=== PATIENT | female | born 1980 | race Two or more races ===

== ENCOUNTER 2025-09-26 08:58 | Emergency (ER) | payer BC, SELFPAY ==
[2025-09-26 09:09] VITALS: BP 154/96; PULSE 66; RESP 16; TEMP 37.2; O2SAT 98; BMI 45.0
--- NOTE | 2025-09-26 09:19 | XR_ITS ---
EXAMINATION: PA lateral chest 2 views TECHNIQUE: Upright PA lateral chest 2 views Date and time: September 26, 2025, 10:24 a.m. INDICATIONS: Difficulty swallowing 10 days. FINDINGS: Moderate enlargement cardiac contour No pneumonia or pulmonary edema. No opaque foreign body IMPRESSION: No opaque foreign body
--- NOTE | 2025-09-26 09:19 | XR_ITS ---
EXAMINATION: AP lateral soft tissue neck 2 views TECHNIQUE: AP lateral soft tissue neck 2 views INDICATIONS: Foreign body sensation 10 days FINDINGS: Minimal distention hypopharynx Epiglottis is not thickened No opaque foreign body Satisfactory alignment cervical vertebral bodies IMPRESSION: No opaque foreign body
--- NOTE | 2025-09-26 09:19 | XR_ITS ---
Examination: CT soft tissue neck, with intravenous contrast. 2-D coronal reconstructions. 2-D sagittal reconstructions. Date and time of exam : September 26, 2025, 1104 hours INDICATIONS: Sore throat difficulty swallowing this week. CTDI: vol (mGy): 18 DLP: (mGycm): 516 Technique: 1.25 mm axial sections of the neck of the obtained. Coronal and sagittal reconstructions have been obtained. Intravenous contrast administered 50 cc Isovue-370. Low dose protocols were performed. One or more of the following dose reduction techniques were used; automated exposure control, adjustment of the mA and/or KV according to patient size, use of iterative reconstruction technique. Findings: Maxillary antra are clear No tonsillar soft tissue hypertrophy or abscess Symmetrical submandibular and parotid glands The larynx appears normal No thyroid nodules Normal epiglottis No prevertebral soft tissue prominence Satisfactory alignment cervical vertebral bodies Fluid-filled esophagus IMPRESSION: No oropharyngeal or nasopharyngeal abscess Normal larynx Normal epiglottis Fluid-filled esophagus
--- NOTE | 2025-09-26 09:19 | XR_ITS ---
Examination: CT chest with intravenous contrast CT abdomen with intravenous contrast CT pelvis with intravenous contrast 2-D coronal and sagittal reconstructions Time of exam: September 26, 2025, 11:00 a.m. INDICATIONS: Sore throat difficulty swallowing heartburn abdominal pain 10 days CTDI: vol (mGy) : 21 DLP: (mGycm): 1504 Technique: Multiple axial images of the chest, abdomen and pelvis with intravenous contrast, 3.0 mm slice thickness. Images obtained post intravenous injection Isovue 370 60 cc. 2-D sagittal and coronal reconstructions. Low dose protocols were performed. One or more of the following dose reduction techniques were used; automated exposure control, adjustment of the mA and/or KV according to patient size, use of iterative reconstruction technique. Findings: Fluid-filled esophagus with retrocardiac gastric hernia No significant cardiac enlargement No pneumonia or pulmonary edema No pleural disease No visualized liver or splenic lesion Absent gallbladder No pancreatic or adrenal mass No renal or ureteral calculi, no hydronephrosis Normal appendix 25 mm fat-containing umbilical hernia Intrauterine device satisfactory position in the uterus Contracted urinary bladder Moderate osteopenia IMPRESSION: Fluid-filled esophagus and retrocardiac gastric hernia, likely stricture at the gastroesophageal junction secondary to reflux esophagitis Recommend elective standard fluoroscopically guided esophagram follow-up No pneumonia or pulmonary edema Negative for bowel obstruction Normal appendix 25 mm fat-containing umbilical hernia
[2025-09-26 09:56] LABS: Basophils # (Auto) 0.1 Thou/mm3 (0.0-0.2); Basophils % (Auto) 1 % (0-2.5); Eosinophils # (Auto) 0.3 Thou/mm3 (0.0-0.5); Eosinophils % (Auto) 5 % (0-10); Hematocrit 50.4 % (36.0-46.0); Hemoglobin 16.6 g/dL (12.0-16.0); Immature Granulocytes Auto 0.01 Thou/mm3 (0.00-0.00); Lymphocytes # (Auto) 2.0 Thou/mm3 (1.0-4.8); Lymphocytes % (Auto) 32 % (10-50); Mean Corpuscular HGB Conc 32.9 g/dl (31.0-37.0); Mean Corpuscular Hemoglobin 29.3 pg (25.0-35.0); Mean Corpuscular Volume 89 fL (80-100); Monocytes # (Auto) 0.6 Thou/mm3 (0.0-0.8); Monocytes % (Auto) 9 % (0-12); Neutrophils # (Auto) 3.3 Thou/mm3 (1.8-7.7); Neutrophils % (Auto) 53 % (37-80); Nucleated Red Blood Cell # 0.00 Thou/mm3 (0.00-0.00); Nucleated Red Blood Cell % 0 /100 WBC (0); Platelet Count 220 Thou/mm3 (140-440); RDW Standard Deviation 44.4 fL (36.4-46.3); Red Blood Count 5.67 Miln/mm3 (4.00-5.20); White Blood Count 6.3 Thou/mm3 (3.6-11.0)
[2025-09-26 10:08] LABS: HCG,Qualitative Serum Negative
[2025-09-26] MEDS: SODIUM CHLORIDE 0.9% 1000 ML 1,000 ML 999 ML IV ×2 (10:10→12:42)
[2025-09-26 10:15] LABS: Alanine Aminotransferase 51 U/L (10-49); Albumin, Serum 5.2 gm/dL (3.5-5.0); Albumin/Globulin Ratio 1.6 (1.2-2.2); Alkaline Phosphatase 97 U/L (46-116); Anion Gap 9 (7-16); Aspartate Amino Transferase 41 U/L (0-34); BUN/Creatinine Ratio 17 Ratio (12-20); Bilirubin,Total 2.9 mg/dL (0.3-1.2); Blood Urea Nitrogen 17 mg/dL (9-23); Calcium 10.1 mg/dL (8.3-10.6); Calcium (Corrected) 10.1 mg/dL (8.5-10.1); Carbon Dioxide 32.1 mMol/L (20.0-31.0); Chloride 110 mMol/L (98-107); Creatinine (Component) 1.0 mg/dL (0.6-1.3); Estimated Creatinine Clearance 102.2 mL/min (>60); Globulin 3.2 gm/dL (2.3-3.5); Glucose 104 mg/dL (74-106); Lipase 37 U/L (12-53); Osmolality,Calculated 301 (275-295); Potassium 3.7 mMol/L (3.4-5.1); Sodium 151 mMol/L (136-145); Total Protein 8.4 gm/dL (5.7-8.2); eGFR > 60 See Note
[2025-09-26 10:29] LABS: Collection Type, Urine Clean Catch
[2025-09-26 10:43] LABS: Amphetamine/Methamp Scrn,U Negative (Negative); Barbiturate Screen,Urine Negative (Negative); Benzodiazepines Screen,Urine Negative (Negative); Benzoylecgonine Screen, Ur Negative (Negative); Fentanyl Screen,Urine Negative (Negative); Opiate Screen,Urine Negative (Negative); THC Screen,Urine Negative (Negative)
[2025-09-26 10:50] LABS: Bacteria,Urine 4+; Bilirubin,Urine 1+ (Negative); Blood,Urine Trace (Negative); Calcium Oxalate Crystals,Urine 3+; Clarity,Urine Turbid (Clear/Hazy); Color,Urine Drk-Yellow (Lt Yel-Yel); Glucose, Urine Negative (Negative); Ketones,Urine 1+ (Negative); Leukocyte Esterase,Urine Positive (Negative); Nitrite,Urine Negative (Negative); PH,Urine 6.0 (5.0-7.0); Protein,Urine 1+ (Neg - Trace); RBC,Urine 6 /hpf (0-3); Specific Gravity,Urine 1.034 (1.001-1.035); Squamous Epithelial Cell,Urine 68 /hpf (0-5); Transitional Epi Cells,Urine 3 /hpf (0-5); Urobilinogen,Urine 6.0 mg/dL (0.0-1.0); WBC,Urine 68 /hpf (0-5)
[2025-09-26 11:00] VITALS: BP 157/81; PULSE 60; RESP 18; TEMP 36.9; O2SAT 98
--- NOTE | 2025-09-26 12:25 | EDNOTE_ITS ---
ED Dental RME/HPI General Chief complaint: Dental/Oral/Throat Stated complaint: Sore throat X 2 weeks, vomiting Time Seen by Provider: 09/26/25 09:03 Arrival date/time: 09/26/25 08:58 Limitations: no limitations RME / HPI RME / HPI Narrative: 45-year-old female states more than 4 months ago excellently swallowed a bristle brush from a barbecue grill. States that since then that was causing the ongoing sensation of something stuck in her throat. And difficulty swallowing. States for the last 4 months has had difficulty taking in food. Has lost more than 20 pounds in that timeframe. Saw her doctor who recommended she have scans done. Had EGD in the past due to reflux. No fever. Is concerned about her urine being so dark worried about dehydration. Related Data Home Medications ?Medication ?Instructions ?Recorded ?Confirmed hydrochlorothiazide 25 mg tablet 25 mg PO QAM #0 tabs 12/31/13 08/01/22 ergocalciferol (vitamin D2) 1,250 50,000 unit PO QWEEK 07/31/22 08/01/22 mcg (50,000 unit) capsule Previous Rx's ?Medication ?Instructions ?Recorded nitrofurantoin 100 mg PO Q12H 7 days #14 ca ps 09/26/25 monohydrate/macrocrystals 100 mg capsule (Macrobid) Allergies Allergy/AdvReac Type Severity Reaction Status Date / Time No Known Allergies Allergy Verified 09/26/25 09:02 Review of Systems Review of Systems Systems Reviewed: All systems reviewed, normal except as documented Constitutional Constitutional: Denies fever(s) Gastrointestinal Gastrointestinal: Reports as per HPI Genitourinary Genitourinary: Reports as per HPI ED Exam General Limitations: Present no limitations General appearance: Present alert and in no apparent distress Head Head exam: Present atraumatic Eye Eye exam: Present normal appearance, PERRL and EOMI ENT ENT exam: Present normal exam, normal oropharynx and mucous membranes moist Neck Neck exam: Present normal inspection, full ROM and trachea midline Chest Chest inspection: Present normal inspection and symmetric chest wall rise Respiratory Respiratory exam: Present normal lung sounds bilaterally Cardiovascular Cardiovascular exam: Present regular rate, normal rhythm and normal heart sounds Abdominal Exam Abdominal exam: Present soft and normal bowel sounds Extremities Exam Extremities exam: Present normal inspection and full ROM Back Exam Back exam: Present normal inspection and full ROM Psychiatric Psychiatric exam: Present normal affect and normal mood Skin Skin exam: Present warm, dry, intact and normal color Course Quality Measures none Orders Category Date Time Status CT Screening NOW Care 09/26/25 09:22 Completed Insert IV NOW Care 09/26/25 09:[address] chest abdomen pelvis w Stat Exams 09/26/25 09:[address] soft tissue neck w con Stat Exams 09/26/25 09:19 Completed XR chest 2V Stat Exams 09/26/25 09:19 Completed XR soft tissue neck Stat Exams 09/26/25 09:19 Completed CBC Stat Lab 09/26/25 09:41 Completed CMP [Comprehensive Metabolic Panel] Stat Lab 09/26/25 09:41 Completed Drug Screen,Urine Stat Lab 09/26/25 10:12 Completed HCG,Qualitative Serum Stat Lab 09/26/25 09:41 Completed Lipase Stat Lab 09/26/25 09:41 Completed UA [Urinalysis] Stat Lab 09/26/25 10:12 Completed Sodium Chloride 0.9% 1000 ml [Ns] 1,000 ml Med 09/26/25 09:21 Discontinued IV 999 mls/hr Sodium Chloride 0.9% 1000 ml [Ns] 1,000 ml Med 09/26/25 12:21 Discontinued IV 999 mls/hr cefTRIAXone/D5w 1gm IV premix [Rocephin/D5w 1gm IV Med 09/26/25 12:21 Discontinued premix] 1 gm in 50 ml IV X1 Vital Signs Vital signs: Vital Signs Temperature 98.9 F 09/26/25 09:09 Pulse Rate 66 09/26/25 09:09 Respiratory Rate 16 09/26/25 09:09 Blood Pressure 154/96 H 09/26/25 09:09 Pulse Oximetry (%) 98 09/26/25 09:09 Oxygen Delivery Method Room Air 09/26/25 09:09 Dental / Oral Patient data External records reviewed:: [facility] previous records Clinical information provided by:: patient Social determinants that could affect healthcare access:: other (specify) (Difficulty accessing further workup with PCP due to scheduled) Patient has the following chronic illnesses:: GERD How is presenting disease/condition affected by chronic disease/condition?: exacerbated by Evaluation data The following diagnostics were reviewed and interpreted by me:: lab results and radiology exam(s) Lab and/or radiology exams considered but not ordered:: Swallow study was considered however can be done outpatient Interpretation Summary: CBC within normal limits CMP with elevated liver enzymes and slightly elevated T. bili however similar in 2021 UA shows significant findings concerning for dehydration versus UTI Normal lipase X-ray of chest and neck with no foreign body CT of chest abdomen and pelvis did show fluid-filled esophagus with gastric hernia likely accounting for problem today, no surgical findings warranting admission Medications / Prescriptions Medications or Prescriptions considered but not ordered:: Medications to numb the throat were considered however opted against Medication administrations:: Medication Administration History Discontinued Medications Sodium Chloride (Ns) 1,000 mls @ 999 mls/hr IV .Q1H1M ONE Stop: 09/26/25 10:21 Last Infusion: 09/26/25 12:15 Dose: Infused Documented By: Admin: 09/26/25 10:10 Dose: 999 mls/hr Documented By: MICHELLE Sodium Chloride (Ns) 1,000 mls @ 999 mls/hr IV .Q1H1M ONE Stop: 09/26/25 13:21 Last Admin: 09/26/25 12:42 Dose: 999 mls/hr Documented By: Ceftriaxone Sodium/Dextrose (Rocephin/D5w 1gm Iv Premix) 1 gm in 50 mls @ 100 mls/hr IV X1 ONE Stop: 09/26/25 12:50 Last Admin: 09/26/25 12:42 Dose: 100 mls/hr Documented By: See above Consultations Consultation(s) initiated? (list below): No Diagnosis Dental Differential Diagnosis: gingival abscess, dental caries and other (Neck mass, gastric mass, lymphoma, foreign body, GERD, hiatal hernia.) Most likely diagnosis given after review of the tests above:: Gastric hernia Dehydration UTI Admission Indicated Admission indicated?: not indicated Admission Request Was there a request for admission?: No Disposition Plan Disposition Plan: Discharge Discharge Attestation Discharge Attestation: The patient and all family members were given an opportunity to ask questions and understood the discharge instructions. Discharge instructions specifically effects, indications for sooner follow up or return to the emergency department, and the expected course of current diagnosis. Patient condition: Stable Discharge Plan Plan Patient Disposition: HOME (Self Care) Discharge Disposition comment: Follow-up with PCP for referral to GI doctor for EGD Prescriptions/Referrals Prescriptions/Med Rec: New nitrofurantoin monohyd/m-cryst [Macrobid] 100 mg capsule 100 mg PO Q12H 7 Days Qty: 14 0RF Rx Instructions: must administer with a meal/food No Action hydrochlorothiazide 25 MG tablet 25 mg PO QAM Qty: 0 ergocalciferol (vitamin D2) 1,250 mcg (50,000 unit) capsule 50,000 unit PO QWEEK Patient Comments: TAKE ONE CAPSULE BY MOUTH ONCE A WEEK VITAMIN Referrals: Radha Piña PA-C [Primary Care Provider] - In 1 week Problem List Clinical Impression: Unintentional weight loss, Dysphagia, Hiatal hernia, Dehydration, UTI (urinary tract infection) Patient/Caregiver Discharge Instructions Education Materials: ED Dehydration (Adult), ED Dysphagia (Adult), ED Hiatal Hernia Print Language: Yakut Stand Alone Forms: [facility] Award Info., Patient Portal Info Letter PA/STENOGRAPHIC COURT REPORTER Supervising Physician PA/STENOGRAPHIC COURT REPORTER Supervising Physician: Dr. grace
[2025-09-26] MEDS: cefTRIAXone/D5w 1gm IV premix 1 GM/50 ML BAG IV (12:42)
== END 2025-09-26 13:54 | disposition home or self-care (01) ==
PROVIDERS: Physician Assistant; Emergency Provider Emergency Medicine; PCP Physician Assistant
DX: E86.0 Dehydration (principal); N39.0 Urinary tract infection, site not specified; K44.9 Diaphragmatic hernia without obstruction or gangrene; R09.A0 Foreign body sensation, unspecified; R63.4 Abnormal weight loss; R13.10 Dysphagia, unspecified; Z68.42 Body mass index [BMI] 45.0-49.9, adult
CPT/HCPCS: 36415; 70360; 70491; 71046; 71260; 74177; 80053; 80307; 81001; 83690; 84703; 85025; 96360; 96361; 99283; A4649; J0696; J7030; Q9967